=== PATIENT | male | born 1955 | race Hispanic/Latino ===

== ENCOUNTER 2021-10-31 06:30 | Day surgery (SDC) | payer OTHER ==
[2021-10-29 14:15] LABS: BASOPHILS % (AUTO) 0.5 % (0.0-5.0); EOSINOPHILS % (AUTO) 0.8 % (0.0-8.0); LYMPHOCYTES % (AUTO) 29.1 % (21.0-51.0); MEAN CORPUSCULAR HEMOGLOBIN 30.7 pg (27.0-33.0); MEAN CORPUSCULAR HGB CONC 34.4 g/dL (32.0-36.0); MEAN CORPUSCULAR VOLUME 89.2 fL (79-99); MONOCYTES % (AUTO) 7.1 % (3.0-13.0); NEUTROPHILS % (AUTO) 62.3 % (40.0-77.0); PLATELET COUNT (AUTO) 254 K/uL (130-400); RED BLOOD CELL COUNT(AUTO) 5.38 MIL/uL (4.50-6.20); RED CELL DISTRIBUTION WIDTH 13.2 % (11.0-15.5); WHITE BLOOD COUNT (AUTO) 8.6 K/uL (4.8-10.8)
[2021-10-29 14:27] LABS: CREATININE 0.9 mg/dL (0.5-1.5); POTASSIUM 4.6 mmol/L (3.5-5.1)
[2021-10-30 12:56] VITALS: BP 169/102
[2021-10-31] VITALS (16 sets, daily range): BP systolic 113–137; BP diastolic 52–84
[~2021-10-31] VITALS: Ht 170.2 cm; Wt 86.4 kg
[~2021-10-31 06:30] MED LIST: FINA5TAB41 PO; LISI10TA24 PO; METO100T14 PO; OMEG-148 PO; ROSU5TAB PO; TAMS-1 PO
[2021-10-31] MEDS ORDERED: LACTATED RINGERS 1000ML 1,000 ML IV ONE (07:48)
[2021-10-31] MEDS: CEFTRIAXONE 1G VIAL IVP SCH ×2 (08:15→09:10)
[2021-10-31] MEDS ORDERED: MIDAZOLAM HCL 1 MG/ML 2ML VIAL ONE (09:02)
[2021-10-31] MEDS ORDERED: ONDANSETRON 4MG INJ ONE (09:02)
[2021-10-31] MEDS ORDERED: LIDOCAINE PF 100MG/5ML (2%) SYRINGE 5ML ONE (09:02)
[2021-10-31] MEDS ORDERED: PROPOFOL 10 MG/ML 20ML VIAL IV ONE (09:03)
[2021-10-31] MEDS ORDERED: ROCURONIUM 10MG/1ML SYR 10 MG/ML ML ONE ×2 (09:03→09:12)
[2021-10-31] MEDS ORDERED: FENTANYL CITRATE PF 50 MCG/1 ML 2ML VIAL ONE ×2 (09:03→10:17)
[2021-10-31] MEDS ORDERED: OPIUM/BELLADONNA ALKALOIDS 1 EACH SUPP.RECT RC ONE (10:01)
[2021-10-31] MEDS ORDERED: NEOSTIGMINE 5MG/5ML SYR IV ONE (10:06)
[2021-10-31] MEDS ORDERED: GLYCOPYRROLATE 1 MG/5 ML SYRINGE ONE (10:06)
[2021-10-31] MEDS ORDERED: EPHEDRINE SULFATE 50 MG/ML AMPULE ONE (10:12)
[2021-10-31] MEDS ORDERED: KETOROLAC 30MG VIAL (30MG/ML) ONE (10:59)
[2021-10-31] MEDS ORDERED: PHENAZOPYRIDINE HCL 200 MG TABLET PO ONE (12:00)
== END 2021-10-31 11:55 | disposition home or self-care (01) ==
LOC: DAH 06:30
PROVIDERS: ATTEND Urology
DX: N40.1 Benign prostatic hyperplasia with lower urinary tract symptoms (principal); I10 Essential (primary) hypertension; Z79.01 Long term (current) use of anticoagulants; Z79.899 Other long term (current) drug therapy
CPT/HCPCS: 93005; 87426; 80048; 85025; 36415; 52648; A6260; J7120 ×2; A4354; J3010 ×2; J3490 ×2; J2710; J2001; J0696; J2250; J2704; J2405; J1885; A4358 ×2; A4215 ×2; A4335; A4222 ×2; A4663 ×2; A4216; A4606; A4223 ×4; A4221 ×2; A4600; A4510; A5113